=== PATIENT | male | born 1950 | race African-American/Black ===

== ENCOUNTER 2017-07-14 00:15 | Emergency (ER) | payer BC, MEDICARE ==
[~2017-07-14] VITALS: Ht 175.3 cm; Wt 96.0 kg
[2017-07-14 02:19] LABS: BASOPHILS % 1.4 % (0.0-2.0); EOSINOPHILS % 2.5 % (0.0-5.0); HEMATOCRIT. 42.8 % (42.0-52.0); LYMPHOCYTES % 26.8 % (20.0-50.0); MEAN CORPUSCULAR HEMOGLOBIN 27.5 pg (28.0-32.0); MEAN PLATELET VOLUME 8.5 fl (7.4-10.4); MONOCYTES % 9.1 % (2.0-8.0); NEUTROPHILS % 60.2 % (40.0-76.0); PLATELET 264 x1000/uL (130-400); RED BLOOD CELL COUNT 5.09 mill/uL (4.7-6.1); RED CELL DISTRIBUTION WIDTH 14.8 % (11.6-14.6)
[2017-07-14 02:22] LABS: INR 1.2; PROTHROMBIN TIME 12.2 sec (9.4-11.6)
[2017-07-14 03:07] LABS: CHLORIDE 96 mEq/L (98-107)
[2017-07-14] MEDS ORDERED: KETOROLAC 30MG/ML VIAL IM ONE (04:15)
[2017-07-14 06:10] LABS: CLARITY URINE CLEAR (CLEAR); COLOR URINE YELLOW (YELLOW); KETONES URINE 1+ (NEGATIVE); LEUKOCYTE ESTERASE URINE NEGATIVE (NEGATIVE); NITRITE URINE NEGATIVE (NEGATIVE); OCCULT BLOOD URINE 2+ (NEGATIVE); PH URINE 5.5 (4.5-8.0); PROTEIN URINE NEGATIVE (NEGATIVE); SPECIFIC GRAVITY URINE 1.009 (1.005-1.030); UROBILINOGEN URINE 0.2 E.U./dL (0.2-1.0)
[2017-07-14 07:07] VITALS: BP 126/73
== END 2017-07-14 07:17 | disposition home or self-care (01) ==
LOC: ER 00:15
DX: R33.9 Retention of urine, unspecified (principal); R03.0 Elevated blood-pressure reading, without diagnosis of hypertension; Z91.19 Patient's noncompliance with other medical treatment and regimen; N28.1 Cyst of kidney, acquired
CPT/HCPCS: 36415; 51701; 76770; 80053; 81003; 85025; 85610; 96372; 99285; J1885